=== PATIENT | female | born 1985 | race Caucasian/White ===

== ENCOUNTER 2016-11-06 09:38 | Inpatient (IN) | payer SELFPAY ==
[2016-11-06 09:48] VITALS: BMI 20.9
[2016-11-06] MEDS ORDERED: ASPIRIN 325 MG TABLET PO ONE (10:15)
--- NOTE | 2016-11-06 10:21 | PDOC ---
History of Present Illness - History of Present Illness Initial Comments: 11/06/16 10:26 The patient is a 31 year old female, with a significant past medical history of MTHFR (blood clotting disorder), who presents to the emergency department with progressive intermittent left sided chest tightness, shortness of breath, and diaphoresis for a couple of weeks which has increased in severity and frequency since yesterday. She states she was prompted to come to the ED this morning because she developed a sudden onset of a squeezing and tingling discomfort , more severe than her previous experience of pain, which radiates to her anterior left chest from under her left axilla while she was driving to work. The patient states her pain is somewhat exacerbated with deep inspiration. The patient reports her chest tightness was associated with shortness of breath and diaphoresis and reports having her drive for her because her pain was too severe. The patient's states his is never usually sweating because she is always cold, and reports the patient "looks pale" today. The patient reports having a normal stress test 2 years ago. She states she has been told to take 81 mg aspirin daily, but denies doing so. She denies recent surgical procedures. She denies headache and dizziness. She denies fever, chills, nausea, vomit, diarrhea and constipation. She denies dysuria, frequency, urgency and hematuria. Allergies: NKDA Social history: tobacco cessation 10 months. Denies alcohol and illicit drug use. PCP - Dr. Brandt <Casandra Nieves - Last Filed: 11/06/16 10:26> <Keysha Laguna - Last Filed: 11/06/16 13:19> <J Carlos Cabrera - Last Filed: 11/09/16 22:07> - General Chief Complaint: Chest Pain Stated Complaint: CHEST PAIN Time Seen by Provider: 11/06/16 10:00 Past History <Casandra Nieves - Last Filed: 11/06/16 10:26> <Keysha Laguna - Last Filed: 11/06/16 13:19> - Past Medical History Kidney Stones: Yes Psychiatric Problems: Yes (ANXIETY.) Other medical history: MTHFR CLOTTING DISORDER - Surgical History Abdominal Surgery: Yes - Family Disease History Family Disease History: Heart Disease: Grandparents (paternal) - Immunization History Immunization Up to Date: Yes - Psycho/Social/Smoking Cessation Hx Anxiety: Yes Suicidal Ideation: No Smoking Status: Yes Smoking History: Former smoker Have you smoked in the past 12 months: Yes Number of Cigarettes Smoked Daily: 20 Information on smoking cessation initiated: No Hx Alcohol Use: No Drug/Substance Use Hx: No Substance Use Type: None Hx Substance Use Treatment: No <J Carlos Cabrera - Last Filed: 11/09/16 22:07> - Past Medical History Allergies/Adverse Reactions: Allergies Allergy/AdvReac Type Severity Reaction Status Date / Time No Known Allergies Allergy Verified 11/06/16 09:49 Home Medications: Ambulatory Orders Alprazolam [Xanax] 0.25 mg PO Q8H #60 tablet MDD 3 11/07/16 Escitalopram Oxalate [Lexapro -] 10 mg PO DAILY #30 tablet 11/07/16 Review of Systems - Review of Systems Able to Perform ROS?: Yes <Casandra Nieves - Last Filed: 11/06/16 10:26> - Review of Systems Constitutional: No: Chills, Fever Respiratory: Yes: Shortness of Breath, SOB with Exertion. No: Cough Cardiac (ROS): Yes: Chest Pain, Lightheadedness. No: Edema, Syncope ABD/GI: Yes: Nausea. No: Vomiting Musculoskeletal: Yes: Back Pain (chronic pinched nerve in upper back) All Other Systems: Reviewed and Negative <J Carlos Cabrera - Last Filed: 11/09/16 22:07> *Physical Exam - Vital Signs Last Vital Signs Temp Pulse Resp BP Pulse Ox 98.3 F 75 20 148/62 100 11/06/16 09:40 11/06/16 09:40 11/06/16 09:40 11/06/16 09:40 11/06/16 10:11 - Physical Exam Comments: 11/06/16 10:30 GENERAL: The patient is awake, alert, and fully oriented, in no acute distress. HEAD: Normal with no signs of trauma. EYES: Pupils equal, round and reactive to light, extraocular movements intact, sclera anicteric, conjunctiva clear with no pallor. ENT: Ears normal, nares patent, oropharynx clear without exudates. Moist mucous membranes. NECK: Normal range of motion, supple without lymphadenopathy, JVD, or masses. LUNGS: Breath sounds equal, clear to auscultation bilaterally. No wheeze/ crackles. HEART: Regular rate and rhythm, normal S1 and S2 without murmur or rub. ABDOMEN: Soft/nontender/nondistended. BS wnl. No guarding or rebound. No palpable masses. No hepatosplenomegaly. EXTREMITIES: Normal range of motion, no edema. No clubbing or cyanosis. No cords, erythema, or tenderness. NEUROLOGICAL: Cranial nerves II through XII grossly intact. Normal speech, normal gait. PSYCH: Normal mood, normal affect. SKIN: Warm, Dry, normal turgor, no rashes or lesions noted. <Casandra Nieves - Last Filed: 11/06/16 10:26> - Vital Signs Last Vital Signs Temp Pulse Resp BP Pulse Ox 98.3 F 75 20 148/62 100 11/06/16 09:40 11/06/16 09:40 11/06/16 09:40 11/06/16 09:40 11/06/16 10:11 <Keysha Laguna - Last Filed: 11/06/16 13:19> - Vital Signs Last Vital Signs Temp Pulse Resp BP Pulse Ox 98.3 F 75 20 148/62 100 11/06/16 09:40 11/06/16 09:40 11/06/16 09:40 11/06/16 09:40 11/06/16 10:11 <J Carlos Cabrera - Last Filed: 11/09/16 22:07> Heart Score/ECG Review #1 ECG reviewed & interpreted by me at: 09:44 General ECG Interpretation: Sinus Rhythm, Normal Rate (78), Normal Intervals ( qtc 435, OR 96, LPFB?), No acute ischemic changes <J Carlos Cabrera - Last Filed: 11/09/16 22:07> ED Treatment Course - LABORATORY CBC & Chemistry Diagram: 11/06/16 10:03 11/06/16 10:03 <Casandra Nieves - Last Filed: 11/06/16 10:26> - LABORATORY CBC & Chemistry Diagram: 11/06/16 10:03 11/06/16 10:03 - ADDITIONAL ORDERS Additional order review: Laboratory Results 11/06/16 11/06/16 11/06/16 10:31 10:03 10:03 INR 1.02 D-Dimer < 200 Sodium 140 Potassium 4.5 Chloride 106 Carbon Dioxide 26 Anion Gap 8 BUN 12 Creatinine 0.8 D Creat Clearance w eGFR > 60 Random Glucose 95 Calcium 8.3 L Magnesium 2.1 Total Bilirubin 0.7 AST 27 D ALT 18 D Alkaline Phosphatase 44 L D Creatine Kinase 125 Troponin I < 0.02 Total Protein 7.0 Albumin 4.0 Serum , Qual Negative 11/06/16 10:03 RBC 4.60 MCV 88.4 MCHC 33.6 RDW 14.2 MPV 9.6 Neutrophils % 53.2 D Lymphocytes % 37.2 D Monocytes % 7.6 Eosinophils % 1.2 D Basophils % 0.8 - RADIOLOGY Radiology Studies Ordered: 11/06/16 13:19 EXAM:CT/CHEST CTA Clinical history: Left chest pain. Comparison: 01/21/2013. Contiguous transaxial images were obtained from the lung apices to the bases with windows obtained for mediastinal and lung parenchymal detail. IV contrast was utilized in the arterial phase for evaluation of pulmonary emboli. Sagittal and coronal reconstructions were performed. 3-D processing was also obtained. No emboli are seen. Mediastinum: Negative. No evidence of mediastinal or hilar mass or adenopathy. No pleural or pericardial effusions. No aneurysm. Lungs: Small biapical blebs and chronic changes. No evidence of mass, nodule or consolidation. Bone: Negative. Cursory scanning of the upper abdomen: Negative. Impression: No emboli are seen. No acute pathology identified. Clinical correlation advised. Reported By: Silvano Mandujano MD 11/06/16 Reviewed: J Carlos Cabrera - Medications Given in the ED: ED Medications Discontinued Medications Generic Name Dose Route Start Last Admin Trade Name Freq PRN Reason Stop Dose Admin Aspirin 325 mg 11/06/16 10:15 11/06/16 11:05 Asa - PO 11/06/16 10:16 325 mg ONCE ONE Administration Sodium Chloride 1,000 mls @ 1,000 mls/hr 11/06/16 11:24 11/06/16 12:08 Normal Saline - IV 11/06/16 12:23 1,000 mls/hr ONCE ONE Administration <Keysha Laguna - Last Filed: 11/06/16 13:19> - LABORATORY CBC & Chemistry Diagram: 11/07/16 05:35 11/07/16 05:35 <J Carlos Cabrera - Last Filed: 11/09/16 22:07> Medical Decision Making - Medical Decision Making 11/06/16 10:17 A portion of this note was documented by scribe services under my direction. I have reviewed the details of the note, within reason, and agree with the documentation with the following case summary and management plan written by me. 31-year-old female with history of MTHFR gene but no complications presents now with progressive left-sided chest pain over the last few weeks. Intermittent episodes of left chest/left axillary pain, otherwise nonradiating, but associated with shortness of breath, a pleuritic component, and dyspnea on exertion. No cough or fevers or chills, the patient has had episodes of this at rest, and this morning had a more severe episode associated with severe lightheadedness and diaphoresis so she presents for evaluation. Other than her underlying hypercoagulable disorder, has no other risk factors for PE. No OCPs, no travel or procedures, quit smoking 10 months ago. Had a stress test about 2 years ago that was reportedly normal. Vital signs normal. Comfortable now. Exam is nonfocal. 31-year-old female with crescendo left-sided chest pain over the last few weeks , now occurring at rest. PE is high on the differential given her underlying genetic disorder, could also be consistent with ACS. Seems less likely pneumothorax or infectious, hemodynamically stable. EKG shows no evidence of acute ischemic change. Cardiac workup including CTA chest to rule out PE Will require admission for full evaluation 11/06/16 11:37 Labs are within normal limits, troponin negative, serum negative. Received aspirin. Receiving IV fluid hydration, will proceed with CTA chest to rule out PE. Will proceed with admission. Discussed with Dr. Brandt, the patient has not been in the office for several years, so will admit to service. 11/06/16 11:49 Accepted for obs tele by Dr. Govea. Will consult cardiology pending PE study. <J Carlos Cabrera - Last Filed: 11/09/16 22:07> *DC/Admit/Observation/Transfer - Attestations Scribe Attestion: 11/06/16 10:30 Documentation prepared by Casandra Nieves, acting as medical billing clerk for J Carlos Cabrera MD, MD <Casandra Nieves - Last Filed: 11/06/16 10:26> <Keysha Laguna - Last Filed: 11/06/16 13:19> - Discharge Dispostion Admit: Yes <J Carlos Cabrera - Last Filed: 11/09/16 22:07> Diagnosis at time of Disposition: Precordial chest pain - Discharge Dispostion Disposition: HOME Condition at time of disposition: Fair - Prescriptions
[2016-11-06 10:31] LABS: BASOPHIL 0.8 % (0-2.0); EOSINOPHIL 1.2 % (0-4.5); MCH 29.7 pg (25.7-33.7); MCHC 33.6 g/dl (32.0-36.0); MEAN CELL VOLUME 88.4 fl (80-96); MEAN PLT VOLUME 9.6 fl (7.5-11.1); NEUTROPHILS 53.2 % (42.8-82.8); PLATELET COUNT 187 K/MM3 (134-434); RDW 14.2 % (11.6-15.6); WHITE BLOOD COUNT 4.5 K/mm3 (4.0-10.0)
[2016-11-06 10:58] LABS: ALK PHOS 44 U/L (45-117); ANION GAP 8 (8-16); BILIRUBIN,TOTAL 0.7 mg/dL (0.2-1.0); CALCIUM 8.3 mg/dL (8.5-10.1); CO2 26 mmol/L (21-32); CREATININE 0.8 mg/dL (0.55-1.02); GLUCOSE,RANDOM 95 mg/dL (74-106); SGPT/ALT 18 U/L (12-78)
[2016-11-06 11:00] LABS: TROPONIN I < 0.02 ng/ml (0.00-0.05)
[2016-11-06 11:02] LABS: MAGNESIUM 2.1 mg/dL (1.8-2.4); SGOT/AST 27 U/L (15-37)
[2016-11-06] MEDS ORDERED: ASPIRIN 325 MG TABLET ONE (11:03)
[2016-11-06] MEDS ORDERED: SODIUM CHLORIDE 1,000 ML IV ONE (11:24)
[2016-11-06 11:25] LABS: INR 1.02 (0.82-1.09)
[2016-11-06 11:28] LABS: D-DIMER < 200 ng/ml (<200-235)
[2016-11-06] MEDS ORDERED: morphine CARPU-JECT 2 MG/1 ML DISP.SYRIN ONE ×2 (11:53→16:26)
[2016-11-06] MEDS ORDERED: morphine CARPU-JECT 2 MG/1 ML DISP.SYRIN IVPUSH ONE ×2 (12:00→17:00)
--- NOTE | 2016-11-06 16:14 | EKG ---
Test Reason : Blood Pressure : / mmHG Vent. Rate : 078 BPM Atrial Rate : 078 BPM P-R Int : 096 ms QRS Dur : 072 ms QT Int : 382 ms P-R-T Axes : -17 080 036 degrees QTc Int : 435 ms SINUS RHYTHM WITH SHORT RI OTHERWISE NORMAL ECG WHEN COMPARED WITH ECG OF 09-MAR-2015 19:57, NO SIGNIFICANT CHANGE WAS FOUND Confirmed by RADU MCKAY MD ([id number]) on 11/06/2016 4:14:05 PM Referred By: Confirmed By:RADU MCKAY MD
[2016-11-06] MEDS ORDERED: morphine CARPU-JECT 4 MG/1 ML DISP.SYRIN IVPUSH PRN (16:27)
[2016-11-06] MEDS: PANTOPRAZOLE 40 MG TABLET (FP) PO SCH (17:12)
[2016-11-06] MEDS: DEXTROSE 5%-0.45% SALINE 1,000 ML IV SCH (17:12)
--- NOTE | 2016-11-06 18:32 | CON.CARD ---
Consult Consult Specialty:: cardiology Reason for Consultation:: chest discomfort - History of Present Illness Chief Complaint: Pt has been having chest tightness constantly for months; it is partially relieved by lifting her arms up high History of Present Illness: The patient is a 31 year old white female, with a significant past medical history of MTHFR "blood clotting disorder", per pt), anxiety/panic disorder, who presents to the emergency department with progressive intermittent left sided chest tightness, shortness of breath, and diaphoresis for a couple of weeks which has increased in severity and frequency since yesterday. She states she was prompted to come to the ED this morning because she developed a sudden onset of a squeezing and tingling discomfort at rest, more severe than her previous experience of pain, which radiates to her anterior left chest from under her left axilla while she was driving to work. The patient states her pain is somewhat exacerbated with deep inspiration. The patient reports her chest tightness was associated with shortness of breath and diaphoresis and reports having her drive for her because her pain was too severe. The patient's states his is never usually sweating because she is always cold, and reports the patient "looks pale" today. The patient reports having a normal stress test 2 years ago. She states she has been told to take 81 mg aspirin daily, but denies doing so. She denies recent surgical procedures. She denies headache and dizziness. She denies fever, chills, nausea, vomit, diarrhea and constipation. She denies dysuria, frequency, urgency and hematuria. Allergies: NKDA Social history: tobacco cessation 10 months. Denies alcohol and illicit drug use. PCP - Dr. 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: Other (blood coagulation disorder) - Alcohol/Substance Use Hx Alcohol Use: No - Smoking History Smoking history: Former smoker Have you smoked in the past 12 months: Yes Aproximately how many cigarettes per day: 20 - Social History Usual Living Arrangement: With Spouse Home Medications - Allergies Allergies/Adverse Reactions: Allergies Allergy/AdvReac Type Severity Reaction Status Date / Time No Known Allergies Allergy Verified 11/06/16 09:49 - Home Medications Home Medications: Ambulatory Orders NK [No Known Home Medication] 11/06/16 Family Disease History - Family Disease History Family History: Denies Review of Systems - Review of Systems Eyes: reports: No Symptoms HENT: reports: No Symptoms Neck: reports: No Symptoms Cardiovascular: reports: Chest Pain Respiratory: reports: No Symptoms Gastrointestinal: reports: No Symptoms Genitourinary: reports: No Symptoms Breasts: reports: No Symptoms Reported Musculoskeletal: reports: No Symptoms Integumentary: reports: No Symptoms Neurological: reports: Weakness, Other Psychiatric: reports: Anxiety, Panic - Risk Factors Known Risk Factors: Yes: Physical Inactivity Vital Signs: Vital Signs Temperature 97.7 F 11/06/16 17:11 Pulse Rate 88 11/06/16 17:11 Respiratory Rate 20 11/06/16 17:11 Blood Pressure 111/65 11/06/16 17:11 O2 Sat by Pulse Oximetry (%) 98 11/06/16 13:31 Constitutional: Yes: Anxious, Mild Distress Eyes: Yes: WNL HENT: Yes: WNL Neck: Yes: WNL Respiratory: Yes: WNL Gastrointestinal: Yes: WNL Renal/: Yes: WNL Cardiovascular: Yes: WNL JVD: No Carotid Bruit: No PMI: Non-Displaced Heart Sounds: Yes: S1, S2 Musculoskeletal: Yes: WNL Extremities: Yes: WNL Edema: No Peripheral Pulses WNL: Yes Integumentary: Yes: WNL Neurological: Yes: WNL ...Motor Strength: WNL Psychiatric: Yes: Other (anxiety/depression/panic) - Other Data Labs, Other Data: INR, PTT INR 1.02 (0.82-1.09) 11/06/16 10:03 Imaging - Results Chest X-ray: Image Reviewed (no acute pathology) EKG: Image Reviewed Problem List - Problems (1) Dizziness Code(s): R42 - DIZZINESS AND GIDDINESS (2) Nausea & vomiting Code(s): R11.2 - NAUSEA WITH VOMITING, UNSPECIFIED (3) Atypical chest pain Assessment/Plan: Initial TNI < 0.02. EKG: normal sinus rhythm; normal study. Pt had stress treadmill test 05/2013: no evidence of myocardial ischemia or arrhtythmias; good exercise capacity and tolerance. ECHO 2012: normal LVEF; minor degree of MR. Frequent episodes of anxiety/panic. F/u 2nd TNI, EKG, telemetry. F/u ECHO F/u TSH and lipid profile. Repeat stress treadmill. Hx MTHFR mutation. 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
[2016-11-06 18:44] LABS: TROPONIN I < 0.02 ng/ml (0.00-0.05)
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
[2016-11-06] MEDS: NAPROXEN 500 MG TABLET (FP) PO SCH (22:15)
[2016-11-06] MEDS ORDERED: KETOROLAC TROMETHAMINE 30 MG/1 ML VIAL IVPB ONE (22:30)
[2016-11-06] MEDS ORDERED: KETOROLAC TROMETHAMINE 30 MG/1 ML VIAL IVPUSH ONE (22:30)
[2016-11-07 04:51] LABS: CHOLESTEROL 124 mg/dL (50-200); LDL CHOLESTEROL (ONLY SJRH) 67 mg/dL (5-100)
[2016-11-07] MEDS: DEXTROSE 5%-0.45% SALINE 1,000 ML IV SCH (06:07)
[2016-11-07 06:49] LABS: EOSINOPHIL 2.1 % (0-4.5); MCH 29.9 pg (25.7-33.7); MCHC 33.8 g/dl (32.0-36.0); MEAN CELL VOLUME 88.3 fl (80-96); MEAN PLT VOLUME 9.3 fl (7.5-11.1); PLATELET COUNT 165 K/MM3 (134-434); WHITE BLOOD COUNT 4.1 K/mm3 (4.0-10.0)
[2016-11-07 07:15] LABS: ALBUMIN 3.3 g/dl (3.4-5.0); ANION GAP 8 (8-16); CALCIUM 7.9 mg/dL (8.5-10.1); CO2 25 mmol/L (21-32); CREATININE 0.7 mg/dL (0.55-1.02); GLUCOSE,RANDOM 99 mg/dL (74-106); SGOT/AST 8 U/L (15-37); SGPT/ALT 10 U/L (12-78)
[2016-11-07 07:16] LABS: ALK PHOS 38 U/L (45-117); BILIRUBIN,TOTAL 0.7 mg/dL (0.2-1.0); TOT PROT 5.4 g/dl (6.4-8.2)
[2016-11-07 07:17] LABS: TROPONIN I < 0.02 ng/ml (0.00-0.05)
[2016-11-07] MEDS ORDERED: ALPRAZolam 0.25 MG TABLET PO ONE (08:00)
[2016-11-07] MEDS ORDERED: KETOROLAC TROMETHAMINE 30 MG/1 ML VIAL IVPUSH ONE (08:00)
[2016-11-07] MEDS ORDERED: ASPIRIN COATED 81 MG TABLET.EC PO SCH (10:00)
[2016-11-07] MEDS ORDERED: PANTOPRAZOLE 40 MG TABLET (FP) PO SCH (10:00)
[2016-11-07] MEDS ORDERED: ENOXAPARIN NA (PORCINE) 40 MG/0.4 ML DISP.SYRIN SQ SCH (10:00)
--- NOTE | 2016-11-07 12:57 | TRE ---
Protocol Name : MALLORY Max Work Load (METS*10) : 102 Time In Exercise Phase : 00:09:06 Max. Systolic BP : 120 mmHg Max Diastolic BP : 78 mmHg Max Heart Rate : 141 BPM Max Predicted Heart Rate : 189 BPM Attending Physician : RASHID MIKE Reason for Test : CHEST PAIN Stress Protocol : MALLORY Rest HR : 93 BPM PeakEx METs : 10.2 METS Recovery ECG Response (OLD) : Diagnosis : Baseline ECG showed NSR at 78bpm. Patient completed 9:06 Standard Malloyr achieving workload of 10 METS. The resting heart rate of 78bpm marquis to a peak of 141bpm representing 74% of age predicted maximum. The test was stopped at patient's request for generalized fatigue and shortness of breath. The resting blood pressure of 110/70 marquis to a peak of 120/78. No ischemic ST changes and no arrhythmias were noted. Conclusion: Non-diagnostic ETT due to failure to achieve target heart rate. Confirmed by RASHID MIKE MD ([id number]) on 11/07/2016 12:57:22 PM
[2016-11-07] MEDS: PANTOPRAZOLE 40 MG TABLET (FP) PO SCH (13:59)
[2016-11-07 14:03] VITALS: TEMP 98.1
[2016-11-07] MEDS: NAPROXEN 500 MG TABLET (FP) PO SCH (14:50)
--- NOTE | 2016-11-07 15:27 | CON.PULM ---
Consult Consult Specialty:: PULMONARY Referred by:: KENDALL Reason for Consultation:: SOB - History of Present Illness Chief Complaint: SOB History of Present Illness: The patient is a 31 year old female, with a significant past medical history of MTHFR (blood clotting disorder), who presents to the emergency department with progressive intermittent left sided chest tightness, shortness of breath, and diaphoresis for a couple of weeks which has increased in severity and frequency since yesterday. She states she was prompted to come to the ED this morning because she developed a sudden onset of a squeezing and tingling discomfort , more severe than her previous experience of pain, which radiates to her anterior left chest from under her left axilla while she was driving to work. The patient states her pain is somewhat exacerbated with deep inspiration. The patient reports her chest tightness was associated with shortness of breath and diaphoresis and reports having her drive for her because her pain was too severe. The patient's states his is never usually sweating because she is always cold, and reports the patient "looks pale" today. The patient reports having a normal stress test 2 years ago. She states she has been told to take 81 mg aspirin daily, but denies doing so. She denies recent surgical procedures. 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) Psych: Yes: Anxiety, Panic - Alcohol/Substance Use Hx Alcohol Use: No - Smoking History Smoking history: Former smoker Have you smoked in the past 12 months: Yes Aproximately how many cigarettes per day: 20 - Social History Usual Living Arrangement: With Child Home Medications - Allergies Allergies/Adverse Reactions: Allergies Allergy/AdvReac Type Severity Reaction Status Date / Time No Known Allergies Allergy Verified 11/06/16 09:49 - Home Medications Home Medications: Ambulatory Orders NK [No Known Home Medication] 11/06/16 Review of Systems - Review of Systems Constitutional: denies: Fever Eyes: denies: Blurred Vision HENT: denies: Difficult Swallowing Neck: denies: Decreased ROM Cardiovascular: reports: Chest Pain, Shortness of Breath Respiratory: reports: SOB. denies: Cough, Exercise Intolerance, SOB on Exertion Physical Exam Vital Sings: Vital Signs Temperature 98.1 F 11/07/16 14:00 Pulse Rate 79 11/07/16 14:00 Respiratory Rate 20 11/07/16 14:00 Blood Pressure 104/60 11/07/16 14:00 O2 Sat by Pulse Oximetry (%) 98 11/07/16 09:00 Constitutional: Yes: Calm Eyes: Yes: EOM Intact HENT: Yes: Normocephalic Neck: Yes: Trachea Midline Cardiovascular: Yes: Regular Rate and Rhythm Respiratory: Yes: CTA Bilaterally Gastrointestinal: Yes: Normal Bowel Sounds Renal/: Yes: WNL Musculoskeletal: Yes: WNL Extremities: Yes: WNL Edema: No Labs: CBC, BMP 11/07/16 05:35 11/07/16 05:35 REST REVIEWED Imaging - Results Chest X-ray: Image Reviewed Cat Scan: Image Reviewed EKG: Report Reviewed Problem List - Problems (1) Anxiety Code(s): F41.9 - ANXIETY DISORDER, UNSPECIFIED (2) Atypical chest pain Code(s): R07.89 - OTHER CHEST PAIN Assessment/Plan LIKELY ANXIETY-HYPERVENTILATION SYNDROME CONSIDER LOW DOSE ALPRAZOLAM F/U [facility]'S OUTPATIENT DISCHARGE PLANNING Gilberto JOHNSTON MD
--- NOTE | 2016-11-07 17:41 | PN ---
Progress Note, Physician Chief Complaint: Pt, with mother at bedside, says she easily becomes fatigued. History of Present Illness: The patient is a 31 year old white female, with a significant past medical history of MTHFR "blood clotting disorder", per pt), anxiety/panic disorder, who presents to the emergency department with progressive intermittent left sided chest tightness, shortness of breath, and diaphoresis for a couple of weeks which has increased in severity and frequency since yesterday. She states she was prompted to come to the ED this morning because she developed a sudden onset of a squeezing and tingling discomfort at rest, more severe than her previous experience of pain, which radiates to her anterior left chest from under her left axilla while she was driving to work. The patient states her pain is somewhat exacerbated with deep inspiration. The patient reports her chest tightness was associated with shortness of breath and diaphoresis and reports having her drive for her because her pain was too severe. The patient's states his is never usually sweating because she is always cold, and reports the patient "looks pale" today. The patient reports having a normal stress test 2 years ago. She states she has been told to take 81 mg aspirin daily, but denies doing so. She denies recent surgical procedures. She denies headache and dizziness. She denies fever, chills, nausea, vomit, diarrhea and constipation. She denies dysuria, frequency, urgency and hematuria. Allergies: NKDA Social history: tobacco cessation 10 months. Denies alcohol and illicit drug use. PCP - Dr. Brandt - Current Medication List Current Medications: Active Medications Aspirin (Ecotrin -) 81 mg PO DAILY [facility] Last Admin: 11/07/16 13:59 Dose: 81 mg Enoxaparin Sodium (Lovenox -) 40 mg SQ DAILY [facility] Last Admin: 11/07/16 10:16 Dose: 40 mg Dextrose/Sodium Chloride (D5-1/2ns -) 1,000 mls @ 75 mls/hr IV ASDIR [facility] Last Admin: 11/07/16 06:07 Dose: 75 mls/hr Naproxen (Naprosyn -) 500 mg PO BID [facility] Last Admin: 11/07/16 14:50 Dose: Not Given Pantoprazole Sodium (Protonix -) 40 mg PO DAILY [facility] Last Admin: 11/07/16 13:59 Dose: 40 mg - Objective Vital Signs: Vital Signs Temperature 98.1 F 11/07/16 14:00 Pulse Rate 79 11/07/16 14:00 Respiratory Rate 20 11/07/16 14:00 Blood Pressure 104/60 11/07/16 14:00 O2 Sat by Pulse Oximetry (%) 98 11/07/16 09:00 Constitutional: Yes: Anxious, Mild Distress Eyes: Yes: WNL HENT: Yes: WNL Neck: Yes: WNL Cardiovascular: Yes: WNL Respiratory: Yes: WNL Gastrointestinal: Yes: WNL ...Rectal Exam: Yes: Deferred Genitourinary: Yes: WNL Breast(s): Yes: WNL Musculoskeletal: Yes: WNL Extremities: Yes: WNL Edema: No Peripheral Pulses WNL: Yes Integumentary: Yes: WNL, Tattoos Neurological: Yes: Alert, Oriented Psychiatric: Yes: Other Labs: CBC, BMP 11/07/16 05:35 11/07/16 05:35 INR, PTT INR 1.02 (0.82-1.09) 11/06/16 10:03 Abnormal Lab Results 11/07/16 11/07/16 05:35 05:35 Lymphocytes % 40.8 H Chloride 108 H Calcium 7.9 L AST 8 L D ALT 10 L D Alkaline Phosphatase 38 L Total Protein 5.4 L D Albumin 3.3 L Problem List - Problems (1) Dizziness Code(s): R42 - DIZZINESS AND GIDDINESS (2) Nausea & vomiting Code(s): R11.2 - NAUSEA WITH VOMITING, UNSPECIFIED (3) Atypical chest pain Assessment/Plan: TNI < 0.02 x 2. stress treadmill test today: no evidence of myocardial ischemia; good exercise capacity (9 min walk using Jay protocol); mildly suboptimal HR achieved due to stopping exercise because pt felt tired and did not want to continue (she is likely deconditioned, both she and her saying she has not been doing much physical activity for months). Total cholesterol 124 mg/dL (on no lipid-lowering meds; TSH WNL). Hypoproteinemia (pt says she has poor eating habits). Rec: From a cardiac standpoint, pt may be followed up as an outpatient. She has agreed to speak with a psychologist regarding anxiety/depression/panic ( felt better after alprazolam today), though she feels her symptoms lately have been different than those she usually associates with past panic attacks. Increase daily exercise, ideally including at least 30 minutes of walking at a brisk pace. Follow heart healthy diet. Both diet and exercise were discussed in detail with her. She was encouraged to return to her PMD (Dr. Brandt), who she has not seen in years. F/u homocysteine level (pt with MTHFR, though unclear extent of defect/s; cardiology associations generally do not suggest genetic testing for this because of currently uncertain relationship to cardiac issues). Code(s): R07.89 - OTHER CHEST PAIN (4) Severe anxiety with panic Code(s): F41.0 - PANIC DISORDER WITHOUT AGORAPHOBIA (5) MTHFR mutation (methylenetetrahydrofolate reductase) Assessment/Plan: CBC essentially WNL Pt was encouraged to f/u with PMD and claim service representative. ([place] [employer] recommends against Code(s): E72.12 - METHYLENETETRAHYDROFOLATE REDUCTASE DEFICIENCY
[2016-11-07 18:58] VITALS: BP 101/55; PULSE 85
[2016-11-07] MEDS ORDERED: PT OWN MED DRAWER 7, Y5N ONE (20:49)
--- NOTE | 2016-11-08 16:29 | EKG ---
Test Reason : Blood Pressure : / mmHG Vent. Rate : 072 BPM Atrial Rate : 072 BPM P-R Int : 108 ms QRS Dur : 072 ms QT Int : 402 ms P-R-T Axes : 040 077 051 degrees QTc Int : 440 ms SINUS RHYTHM WITH SHORT LA OTHERWISE NORMAL ECG WHEN COMPARED WITH ECG OF 06-NOV-2016 09:44, NO SIGNIFICANT CHANGE WAS FOUND Confirmed by ALMA ROSA PHILLIPS MD ([id number]) on 11/08/2016 4:28:36 PM Referred By: ALMA ROSA LOJA Confirmed By:ALMA ROSA PHILLIPS MD
--- NOTE | 2016-11-10 11:29 | EKG ---
Test Reason : Blood Pressure : / mmHG Vent. Rate : 091 BPM Atrial Rate : 091 BPM P-R Int : 098 ms QRS Dur : 068 ms QT Int : 370 ms P-R-T Axes : 063 081 047 degrees QTc Int : 455 ms POOR DATA QUALITY, INTERPRETATION MAY BE ADVERSELY AFFECTED SINUS RHYTHM WITH SHORT WI OTHERWISE NORMAL ECG WHEN COMPARED WITH ECG OF 06-NOV-2016 09:44, NO SIGNIFICANT CHANGE WAS FOUND Confirmed by MARCEL BERMUDEZ MD ([id number]) on 11/10/2016 11:29:04 AM Referred By: Confirmed By:MARCEL BERMUDEZ MD
== END 2016-11-07 21:50 | disposition home or self-care (01) | DRG 203 ==
LOC: JER 09:38 → JERBED 11:50 → J4S 14:08 → OBSVTOIN 19:15
PROVIDERS: ADMIT Internal Medicine; ATTEND Internal Medicine
DX: R07.89 Other chest pain (principal); E72.12 Methylenetetrahydrofolate reductase deficiency; F41.8 Other specified anxiety disorders; R42 Dizziness and giddiness; F41.0 Panic disorder [episodic paroxysmal anxiety]; M54.12 Radiculopathy, cervical region; R11.2 Nausea with vomiting, unspecified; R06.00 Dyspnea, unspecified; Z87.891 Personal history of nicotine dependence
CPT/HCPCS: 36415; 71275-TC; 76700-TC; 80053; 80061; 82550; 83090; 83721; 83735; 84443; 84484; 84703; 85025; 85379; 85610; 93005; 93010; 93017; 93018; 99285-25; G0378

== ENCOUNTER 2020-03-22 13:31 | Emergency (ER) | payer OTHER ==
[2020-03-22 13:41] VITALS: BP 107/65; PULSE 75; TEMP 97.5; BMI 29.0
[2020-03-22] MEDS ORDERED: morphine CARPU-JECT 4 MG/1 ML DISP.SYRIN IVPUSH ONE (14:30)
[2020-03-22] MEDS ORDERED: ONDANSETRON 4 MG/2 ML VIAL IVPUSH ONE (14:30)
[2020-03-22] MEDS ORDERED: SODIUM CHLORIDE 0.9% 500 ML INFUS.BAG IV ONE (14:30)
--- NOTE | 2020-03-22 14:36 | PDOC ---
History of Present Illness - General Chief Complaint: Back Pain Stated Complaint: BACK PAIN Time Seen by Provider: 03/22/20 14:15 History Source: Patient Exam Limitations: No Limitations - History of Present Illness Initial Comments: 03/22/20 14:33 34-year-old female history of anxiety, depression, MTHFR gene mutation, renal stones in the past requiring stent and lithotripsy last procedure was approximately 3 years ago. Presents today complaining of right flank pain radiating to right groin since yesterday with nausea. Patient denies fever, chills, vomiting, diarrhea, chest pain, shortness of breath, urinary symptoms or any other complaint. Patient took acetaminophen yesterday with no relief. Did not take any medication today. Reports this feels like her prior renal colic. ROS: as above PE: GENERAL: Appears uncomfortable HEAD: NCAT EYES: Pupils equal, round and reactive to light, sclera anicteric, conjunctiva clear ENT: pharynx: no erythema, no exudate, uvula midline NECK: supple CHEST: nontender RESP: clear, no w/r/r CARDIO: rrr, no m/g/r ABD: +BS, soft, RLQ ttp, no rebound, no guarding BACK: no midline spinal ttp, no CVAT EXTREMITIES: Normal range of motion, no edema NEUROLOGICAL: Normal speech, normal gait SKIN: Warm, Dry Is this a multiple visit Asthma Patient?: No Past History - Medical History Allergies/Adverse Reactions: Allergies Allergy/AdvReac Type Severity Reaction Status Date / Time No Known Allergies Allergy Verified 11/06/16 09:49 Home Medications: Ambulatory Orders Alprazolam [Xanax] 0.25 mg PO Q8H #60 tablet MDD 3 11/07/16 Escitalopram Oxalate [Lexapro -] 10 mg PO DAILY #30 tablet 11/07/16 Kidney Stones: Yes Psychiatric Problems: Yes (ANXIETY.) - Surgical History Abdominal Surgery: Yes - Reproductive History Is Patient Now?: No - Immunization History Immunization Up to Date: Yes - Psycho-Social/Smoking History Smoking Status: Yes Smoking History: Never smoked Have you smoked in the past 12 months: Yes Number of Cigarettes Smoked Daily: 20 Information on smoking cessation initiated: No 'Breaking Loose' booklet given: 11/06/16 - Substance Abuse Hx (Audit-C & DAST Scrn) How often the patient has a drink containing alcohol: Never Score: In Men: 4 or > Positive; In Women: 3 or > Positive: 0 Screen Result (Pos requires Nsg. Audit-10AR): Negative *Physical Exam - Vital Signs Last Vital Signs Temp Pulse Resp BP Pulse Ox 97.5 F L 75 17 107/65 99 03/22/20 13:37 03/22/20 13:37 03/22/20 13:37 03/22/20 13:37 03/22/20 13:37 ED Treatment Course - LABORATORY CBC & Chemistry Diagram: 03/22/20 14:40 03/22/20 14:40 - RADIOLOGY Radiology Studies Ordered: Category Date Time Status ABDOMEN & PELVIS CT W/O CONTR [CT] Stat CT Scan 03/22/20 14:30 Ordered Medical Decision Making - Medical Decision Making 03/22/20 14:35 34-year-old female history of anxiety, depression, MTHFR gene mutation, renal stones in the past requiring stent and lithotripsy last procedure was approximately 3 years ago. Presents today complaining of right flank pain radiating to right groin since yesterday with nausea. Patient denies fever, chills, vomiting, diarrhea, chest pain, shortness of breath, urinary symptoms or any other complaint. Patient took acetaminophen yesterday with no relief. Did not take any medication today. Reports this feels like her prior renal colic. Right flank pain rule out renal stone Labs, UA, urine culture Urine IV fluids, analgesia and antiemetic CTAP w/o con Reassess 03/22/20 18:55 Urine negative CTAP w/o con: Small 2 mm nonobstructing left renal stone, 4cm x 3cm left adnexal complex cyst Discussed above results with patient Pain controlled Reviewed labs and UA Stable for discharge Discharge - Discharge Information Problems reviewed: Yes Clinical Impression/Diagnosis: Acute flank pain Condition: Stable Disposition: HOME - Admission No - Follow up/Referral - Patient Discharge Instructions Additional Instructions: Alternate between acetaminophen 975 mg and ibuprofen 600 mg every 6 hours as needed for pain Follow-up with your primary care physician within 1 week Return to ED if you develop fever, chills, nausea, vomiting or worsening abdominal pain - Post Discharge Activity
[2020-03-22 14:48] LABS: EPI CELLS >36 /uL (0-25.1); HYALINE CASTS 2 /uL (0-3.1); PH,URINE 6.5 (5.0-8.0); URINE APPEARANCE CLEAR; URINE BACTERIA 1390 /uL (0-1359); URINE BILIRUBIN NEGATIVE (NEGATIVE); URINE COLOR YELLOW; URINE GLUCOSE (UA) NEGATIVE (NEGATIVE); URINE KETONE NEGATIVE (NEGATIVE); URINE LEUK ESTERASE TRACE (NEGATIVE); URINE NITRITE NEGATIVE (NEGATIVE); URINE PROTEIN NEGATIVE (NEGATIVE); URINE RBC 16 /uL (0-23.9); URINE WBC 9 /uL (0-25.8)
[2020-03-22 15:07] LABS: BASO % 0.6 % (0-2.0); EOS % 3.5 % (0-4.5); HEMATOCRIT 41.3 % (32.4-45.2); HEMOGLOBIN 13.7 GM/dL (10.7-15.3); LYMPH % 22.7 % (8-40); MCH 28.8 pg (25.7-33.7); MCHC 33.1 g/dl (32.0-36.0); MEAN CELL VOLUME 87.2 fl (80-96); MEAN PLT VOLUME 9.1 fl (7.5-11.1); MONO % 6.9 % (3.8-10.2); NEUT % 66.3 % (42.8-82.8); PLATELET COUNT 270 K/MM3 (134-434); RBC 4.74 M/mm3 (3.60-5.2); RDW 14.8 % (11.6-15.6); WHITE BLOOD COUNT 9.7 K/mm3 (4.0-10.0)
[2020-03-22 15:35] LABS: ALBUMIN 3.6 g/dl (3.4-5.0); BILIRUBIN,TOTAL 0.3 mg/dL (0.2-1); BLOOD UREA NITROGEN 9.3 mg/dL (7-18); CREATININE 0.7 mg/dL (0.55-1.3); POTASSIUM 4.4 mmol/L (3.5-5.1); TOT PROT 6.9 g/dl (6.4-8.2)
[2020-03-22] MEDS ORDERED: KETOROLAC TROMETHAMINE 30 MG/1 ML VIAL IM ONE (16:47)
[2020-03-22] MEDS ORDERED: KETOROLAC TROMETHAMINE 15 MG/ML VIAL ONE (17:14)
== END 2020-03-22 19:00 | disposition home or self-care (01) ==
LOC: JER 13:31
PROC: 3E033NZ Introduction of Analgesics, Hypnotics, Sedatives into Peripheral Vein, Percutaneous Approach (ICD-10-PCS; principal; 2020-03-22)
PROC: 3E033GC Introduction of Other Therapeutic Substance into Peripheral Vein, Percutaneous Approach (ICD-10-PCS; 2020-03-22)
PROC: 3E0233Z Introduction of Anti-inflammatory into Muscle, Percutaneous Approach (ICD-10-PCS; 2020-03-22)
DX: R10.9 Unspecified abdominal pain (principal)
CPT/HCPCS: 36415; 74176-TC; 80053; 81003; 84703; 85025; 87086; 99284-25

== ENCOUNTER 2020-06-21 04:44 | Day surgery (SDC) | payer OTHER ==
[2020-06-20 15:27] VITALS: BMI 29.0
[2020-06-21] MEDS ORDERED: DEXAMETHASONE SOD PHOSPHATE 4 MG/1 ML VIAL ONE (10:03)
[2020-06-21] MEDS ORDERED: LIDOCAINE HCL/PF 2% SDV 5ML VIAL ONE (10:03)
[2020-06-21] MEDS ORDERED: MIDAZOLAM HCL 2 MG/2 ML SINGLE DOSE VIAL ONE (10:04)
[2020-06-21] MEDS ORDERED: PROPOFOL 20 ML ONE (10:04)
[2020-06-21] MEDS ORDERED: IBUPROFEN 400 MG TABLET (FP) PO PRN (10:14)
[2020-06-21] MEDS ORDERED: oxyCODONE HCL 5 MG TABLET PO PRN ×2 (10:14→10:46)
[2020-06-21] MEDS ORDERED: ACETAMINOPHEN 325 MG TABLET (FP) PO PRN (10:14)
[2020-06-21] MEDS ORDERED: ONDANSETRON 4 MG/2 ML VIAL IVPUSH PRN (10:14)
[2020-06-21] MEDS ORDERED: ACETAMINOPHEN 1000 MG/100 ML VIAL (NON FORMULARY) IVPB PRN (10:47)
[2020-06-21] MEDS ORDERED: LACTATED RINGERS SOLUTION 1,000 ML IV SCH (11:00)
[2020-06-21] MEDS ORDERED: ACETAMINOPHEN INJECTION 100 ML IVPB ONE (11:03)
[2020-06-21] MEDS ORDERED: IBUPROFEN 400 MG TABLET (FP) PO ONE (13:31)
[2020-06-21 15:20] VITALS: BP 114/66; PULSE 73; TEMP 97.2
== END 2020-06-21 14:30 | disposition home or self-care (01) ==
LOC: JASU-SURG 04:44
PROVIDERS: ATTEND Obstetrics & Gynecology
PROC: 0UBC7ZZ Excision of Cervix, Via Natural or Artificial Opening (ICD-10-PCS; principal; 2020-06-21 10:00)
DX: R87.613 High grade squamous intraepithelial lesion on cytologic smear of cervix (HGSIL) (principal); R87.810 Cervical high risk human papillomavirus (HPV) DNA test positive
CPT/HCPCS: 36415; 84703; 86850; 86900; 86901; 86922; 88307-TC; 94760; J0131

== ENCOUNTER 2023-02-23 19:32 | Emergency (ER) | payer OTHER ==
[2023-02-23] MEDS ORDERED: morphine SULFATE 4 MG/ML VIAL ONE ×2 (19:38→20:38)
[2023-02-23] MEDS ORDERED: KETOROLAC TROMETHAMINE 30 MG/1 ML VIAL IVPUSH ONE (19:41)
[2023-02-23] MEDS ORDERED: ONDANSETRON 4 MG/2 ML VIAL ONE (19:41)
[2023-02-23] MEDS ORDERED: ONDANSETRON 4 MG/2 ML VIAL IVPUSH ONE (19:41)
[2023-02-23] MEDS ORDERED: morphine CARPU-JECT 2 MG/1 ML DISP.SYRIN IVPUSH ONE ×2 (19:41→20:38)
[2023-02-23] MEDS ORDERED: SODIUM CHLORIDE 1,000 ML IV ONE (19:46)
[2023-02-23 19:54] VITALS: BP 139/98; PULSE 68; RESP 20; BMI 27.4
[2023-02-23 20:04] LABS: HEMATOCRIT 40.3 % (32.4-45.2); HEMOGLOBIN 13.7 G/dL (10.7-15.3); MCH 29.8 pg (25.7-33.7); MEAN CELL VOLUME 87.7 fl (80-96); MEAN PLT VOLUME 10.3 fl (7.5-11.1); PLATELET COUNT 233.5 10^3/uL (134-434); RDW 14.7 % (11.6-15.6); WHITE BLOOD COUNT 8.8 10^3/uL (4.0-10.8)
[2023-02-23 20:08] LABS: HCG,QUALITATIVE URINE Negative
[2023-02-23 20:24] LABS: ALBUMIN 4.5 g/dl (3.4-5.0); BILIRUBIN,TOTAL 0.4 mg/dl (0.2-1); BLOOD UREA NITROGEN 13.7 mg/dl (7-18); CALCIUM 9.3 mg/dl (8.5-10.1); CREATININE 0.9 mg/dl (0.6-1.3); SGOT/AST 11.8 U/L (15-37); SGPT/ALT 9.4 U/L (7-52); TOT PROT 6.7 g/dl (6.4-8.2)
== END 2023-02-23 23:23 | disposition home or self-care (01) ==
LOC: FER 19:32
PROC: 3E0333Z Introduction of Anti-inflammatory into Peripheral Vein, Percutaneous Approach (ICD-10-PCS; principal; 2023-02-23)
PROC: 3E033GC Introduction of Other Therapeutic Substance into Peripheral Vein, Percutaneous Approach (ICD-10-PCS; 2023-02-23)
PROC: 3E033GC Introduction of Other Therapeutic Substance into Peripheral Vein, Percutaneous Approach (ICD-10-PCS; 2023-02-23)
PROC: 3E033GC Introduction of Other Therapeutic Substance into Peripheral Vein, Percutaneous Approach (ICD-10-PCS; 2023-02-23)
PROC: 3E0337Z Introduction of Electrolytic and Water Balance Substance into Peripheral Vein, Percutaneous Approach (ICD-10-PCS; 2023-02-23)
DX: R10.32 Left lower quadrant pain (principal); N20.0 Calculus of kidney
CPT/HCPCS: 36415; 74176-TC; 80053; 81003; 81015; 81025; 84703; 85027; 99284-25